=== PATIENT | female | born 1965 | race Caucasian/White ===

== ENCOUNTER 2021-10-01 10:32 | Outpatient (CLI) | payer OTHER | END 2021-10-01 10:54 | disposition home or self-care (01) | LOC: MRI 10:32 | PROVIDERS: ATTEND Internal Medicine Cardiovascular Disease | DX: M12.9 Arthropathy, unspecified (principal) | CPT/HCPCS: 73218 ==

== ENCOUNTER 2023-04-08 14:33 | Outpatient (CLI) | payer OTHER | END 2023-04-08 14:53 | disposition home or self-care (01) | LOC: SONOGRAMA 14:33 | PROVIDERS: ATTEND Internal Medicine Cardiovascular Disease | DX: E03.9 Hypothyroidism, unspecified (principal) ==